=== PATIENT | female | born 1940 | race Caucasian/White ===

== ENCOUNTER → 2018-06-09 12:34 | Outpatient (CLI) | payer MEDICARE, OTHER, SELFPAY ==
--- NOTE | 2018-06-11 09:42 | PM.PFT.1 ---
Pulmonary Function Test Referral & Results Date Patient Seen: 06/09/18 Requesting provider: Julio Kirby Results: The spirometry demonstrates an FVC of 2.61 L which is 70% of predicted. The FEV1 was measured at 1.83 L which is 73% of predicted. The FEV1/FVC ratio was 70 which is 94% of predicted. Following the administration of bronchodilator there was 30% improvement in FEV1 and a 230% improvement in FEF 25-75%. Lung volumes show an SVC of 3.27 L which is 101% of predicted. The diffusing capacity was measured at 24.1 to which is 76% of predicted. No hemoglobin value was provided, so no correction for potential anemia could be made, if appropriate. The maximum voluntary ventilation was normal Interpretation: This study demonstrates moderate obstructive lung disease with evidence of significant benefit following bronchodilator administration based on improvement in both FEV1 and FEF 25-75% There is a minimal reduction in diffusing capacity suggesting an element of disease the capillary alveolar level as well, unless patient is anemic as above.
== END ==
PROVIDERS: PCP Family Medicine; Visit Provider Internal Medicine
DX: R06.09 Other forms of dyspnea (principal)
CPT/HCPCS: 94060; 94726; 94729

== ENCOUNTER → 2018-09-11 10:29 | Outpatient (CLI) | payer MEDICARE, OTHER, SELFPAY ==
--- NOTE | 2018-09-11 | DI.RAD.S_ITS ---
PROCEDURE: XR KNEE STANDING BI INDICATIONS: CHRONIC PAIN ON BOTH KNEES TECHNIQUE: Single standing view of both knees. COMPARISON: None. FINDINGS: Bones: Single standing view demonstrates bilateral femoral tibial compartment narrowing, greater on the right than on the left. There are bilateral epicondylar osteophytes and right medial femorotibial compartment osteophytes. Soft tissues: No suspicious soft tissue calcification. IMPRESSION: Bilateral knee osteoarthritis, slightly greater on the right. Dictated by: Ade Phelps M.D. on 09/11/2018 at 11:13 Approved by: Ade Phelps M.D. on 09/11/2018 at 11:14
--- NOTE | 2018-09-11 | DI.RAD.S_ITS ---
PROCEDURE: XR KNEE RT 3V INDICATIONS: CHRONIC PAIN ON BOTH KNEES TECHNIQUE: 3 views of the knee were acquired. COMPARISON: None. FINDINGS: Bones: No fractures or dislocations. No suspicious bony lesions. Moderate narrowing of the medial femoral tibial joint and mild narrowing of the patellofemoral knee joint. Mild tricompartmental periarticular osteophyte formation. Soft tissues: No joint effusion. No suspicious soft tissue calcifications. IMPRESSION: Knee joint degeneration, most notably involving the medial femoral tibial joint. Dictated by: Chris Allison [facility] Interpreted: Arvind Chaparro MD on 09/11/2018 at 11:26 Approved by: Arvind Chaparro M.D. on 09/11/2018 at 11:54
--- NOTE | 2018-09-11 10:39 | DI.RAD.S_ITS ---
PROCEDURE: XR KNEE LT 3V INDICATIONS: CHRONIC PAIN ON BOTH KNEES TECHNIQUE: 3 views of the knee were acquired. COMPARISON: None. FINDINGS: Bones: There is mild femorotibial compartment narrowing and intercondylar, patellar, and medial femorotibial compartment osteophytes. Soft tissues: No joint effusion. No suspicious soft tissue calcifications. IMPRESSION: Mildly osteoarthritis. Dictated by: Ade Phelps M.D. on 09/11/2018 at 11:14 Approved by: Ade Phelps M.D. on 09/11/2018 at 11:14
== END ==
PROVIDERS: PCP Family Medicine; Visit Provider Family Medicine
DX: M17.0 Bilateral primary osteoarthritis of knee (principal); M25.561 Pain in right knee; M25.562 Pain in left knee; G89.29 Other chronic pain
CPT/HCPCS: 73562; 73565

== ENCOUNTER → 2018-10-13 12:45 | Outpatient (CLI) | payer MEDICARE, OTHER, SELFPAY ==
--- NOTE | 2018-10-13 | DI.CT.S_ITS ---
PROCEDURE: CT CHEST WO CON INDICATIONS: SHORT OF BREATH TECHNIQUE: Noncontrast 5 mm thick sections acquired from the pulmonary apices to the posterior costophrenic angles. 1 mm lung window, 5 mm thick coronal and sagittal and 7 mm axial MIP reformats were then acquired. For radiation dose reduction, the following was used: automated exposure control, adjustment of mA and/or kV according to patient size. COMPARISON: None. FINDINGS: Image quality: Excellent. Lungs and pleura: No acute air space opacities, but there is mild linear atelectasis at each lung base. No pleural effusions or pneumothorax. Central and peripheral airways are patent and normal in caliber. Mediastinum: Heart size is normal. No pericardial effusion. No mediastinal adenopathy by size criteria. Thoracic aorta and central pulmonary arteries are normal in size. Esophagus is normal in caliber. No hiatal hernia. Bones and chest wall: No suspicious bony lesions. No vertebral body compression fractures. No axillary or supraclavicular adenopathy by size criteria. Thyroid gland is normal where well seen. Abdomen: Visualized upper abdominal solid organs and bowel loops appear normal in the absence of contrast. IMPRESSION: Minimal linear atelectasis each lung base, no pneumonia found. No pneumothorax seen. No pleural effusion identified. Dictated by: Arvind Chaparro M.D. on 10/13/2018 at 13:56 Approved by: Arvind Chaparro M.D. on 10/13/2018 at 13:57
== END ==
PROVIDERS: Family Provider Family Medicine; PCP Family Medicine; Visit Provider Family Medicine
DX: J44.9 Chronic obstructive pulmonary disease, unspecified (principal); R06.03 Acute respiratory distress
CPT/HCPCS: 71250

== ENCOUNTER → 2018-11-03 11:47 | Outpatient (CLI) | payer MEDICARE, OTHER, SELFPAY ==
--- NOTE | 2018-11-03 11:52 | DI.CT.S_ITS ---
PROCEDURE: CT ANGIO CHEST INDICATIONS: DYSPNEA ON EXERTION TECHNIQUE: After the administration of intravenous contrast, 2 mm thick sections acquired from the pulmonary apices to the posterior costophrenic angles. 3-dimensional maximum intensity projection (MIP) coronal and sagittal reformats were then acquired through the thorax. For radiation dose reduction, the following was used: automated exposure control, adjustment of mA and/or kV according to patient size. COMPARISON: [facility], CT, CT CHEST WO CON, 10/13/2018, 13:21. FINDINGS: Image quality: Excellent. Pulmonary arteries: Pulmonary arteries are normal in size, and demonstrate no intraluminal filling defects to suggest central pulmonary embolism. Lungs and pleura: Dependent atelectasis in posterior aspect of bilateral lung murillo are seen. Bibasilar scarring/atelectasis is also noted. No pleural effusions or pneumothorax. Central and peripheral airways are patent. Mediastinum: Heart size is normal, without pericardial effusion. No mediastinal or hilar adenopathy. Thoracic aorta is normal in caliber and enhancement. Esophagus is normal in caliber, with with a small out hiatal hernia. Bones and chest wall: No suspicious bony lesions. Ribs and thoracic spine appear intact throughout. Thyroid gland is within normal limits. No axillary or supraclavicular adenopathy. Abdomen: Visualized upper abdominal solid organs appear normal in the early arterial phase of enhancement. Gallbladder is surgically absent. IMPRESSION: 1. No evidence of pulmonary emboli. No thoracic aortic aneurysm or gross dissection. 2. Bibasilar scarring/atelectasis. Bilateral lungs are otherwise clear. 3. No mediastinal or hilar lymphadenopathy. Dictated by: Gustavo Bush M.D. on 11/03/2018 at 13:14 Approved by: Gustavo Bush M.D. on 11/03/2018 at 13:20
== END ==
PROVIDERS: PCP Family Medicine; Visit Provider Family Medicine
DX: R06.09 Other forms of dyspnea (principal)
CPT/HCPCS: 71275; Q9967

== ENCOUNTER → 2019-09-11 08:48 | Outpatient (CLI) | payer MEDICARE, OTHER, SELFPAY ==
--- NOTE | 2019-09-11 08:51 | DI.MRI.S_ITS ---
PROCEDURE: MR HEAD/BRAIN WO CON INDICATIONS: Dizziness and giddiness TECHNIQUE: Non-contrast axial T1 spin echo, axial T2 fast spin echo, sagittal and axial FLAIR, coronal T2 fast spin echo, axial gradient echo, axial diffusion and ADC through the brain. COMPARISON: None. FINDINGS: Image quality: Excellent. CSF spaces: Ventricles appear symmetric in size and shape. Basal cisterns are patent. No extra-axial fluid collections. Brain: No intracranial bleeds or mass effects. There is cerebral volume loss for age. There are periventricular and deep white matter chronic small vessel ischemic changes. Brainstem appears normal. Diffusion-weighted images show no acute ischemic insults. No chronic ischemic insults. Normal intravascular flow voids are present. Skull and face: Calvarial bone marrow is normal in signal. Orbits are normal. Sinuses: Mild mucosal thickening in the bilateral frontal, ethmoid, sphenoid, and maxillary sinuses. Sinuses and mastoids are otherwise clear. IMPRESSION: 1. Volume loss and small vessel ischemic disease. 2. No acute process. No recent infarct. 3. Mild sinus disease. Dictated by: Dima Begum M.D. on 09/11/2019 at 9:52 Approved by: Dima Begum M.D. on 09/11/2019 at 9:53
== END ==
PROVIDERS: PCP Family Medicine; Referring Provider Family Medicine; Visit Provider Family Medicine
DX: R42 Dizziness and giddiness (principal); J32.8 Other chronic sinusitis
CPT/HCPCS: 70551

== ENCOUNTER → 2023-02-09 08:35 | Outpatient (CLI) | payer MEDICARE, OTHER, SELFPAY ==
--- NOTE | 2023-02-09 | DI.MG.S_ITS ---
BILATERAL DIGITAL SCREENING MAMMOGRAM 3D/2D WITH CAD: 02/09/2023 CLINICAL: Routine screening. Personal history of left breast cancer. Family history of breast cancer. Comparison is made to exams dated: 12/07/2009 mammogram, 07/26/2008 mammogram, and 06/23/2007 mammogram - [facility]. There are scattered areas of fibroglandular density in both breasts (category b / 25%-50% glandular tissue). Current study was also evaluated with a Computer Aided Detection (CAD) system. No significant masses, calcifications, or other findings are seen in either breast. There has been no significant interval change. IMPRESSION: NEGATIVE There is no mammographic evidence of malignancy. A 1 year screening mammogram is recommended. Based on the Tyrer Cuzick model (a risk assessment model) the patient's lifetime risk is 0.3% and her 10 year risk is 0.0%. According to the ACR, ACS, and NCCN guidelines, an annual breast MRI exam along with mammogram is recommended if the patient's lifetime risk is 20% or greater. This exam was interpreted at Station ID: [id number]. NOTE: For mammograms, a report in lay terms will be sent to the patient. Approximately 15% of breast malignancies will not be visualized mammographically. In the management of a palpable breast mass, a negative mammogram must not discourage biopsy of a clinically suspicious lesion. Electronically Signed By: Navdeep belle/eyal:02/12/2023 11:13:59 letter sent: Normal Exam ACR BI-RADS Category 1: Negative [id number]
== END ==
PROVIDERS: PCP Family Medicine; Referring Provider Family Medicine; Visit Provider Family Medicine
DX: Z12.31 Encounter for screening mammogram for malignant neoplasm of breast (principal); Z85.3 Personal history of malignant neoplasm of breast; Z80.3 Family history of malignant neoplasm of breast
CPT/HCPCS: 77063; 77067

== ENCOUNTER → 2023-09-14 14:21 | Outpatient (CLI) | payer MEDICARE, OTHER, SELFPAY ==
--- NOTE | 2023-09-14 16:00 | DI.MRI.S_ITS ---
PROCEDURE: MR HEAD/BRAIN WO CON INDICATIONS: COGNATIVE CHANGES TECHNIQUE: Non-contrast axial T1 spin echo, axial T2 fast spin echo, sagittal and axial FLAIR, coronal T2 fast spin echo, axial gradient echo, axial diffusion and ADC through the brain. COMPARISON: [facility], MR, MR HEAD/BRAIN WO CON, 09/11/2019, 9:39. FINDINGS: Image quality: Excellent. CSF spaces: Ventricles appear symmetric in size and shape. Basal cisterns are patent. No extra-axial fluid collections. Brain: No intracranial bleeds or mass effects. There is moderate cerebral volume loss, increased from prior exam. There are periventricular and deep white matter chronic small vessel ischemic changes. Brainstem appears normal. Diffusion-weighted images show no acute infarct. No chronic ischemic insults. Normal intravascular flow voids are present. Skull and face: Calvarial bone marrow is normal in signal. Bilateral lens replacement. Sinuses: Bilateral mucous retention cyst within the maxillary sinus. Trace mucosal thickening within both sphenoid sinuses and frontal sinuses mild mucosal thickening within the ethmoid sinuses. The mastoids are clear. IMPRESSION: 1. No evidence for an acute infarct, hemorrhage or mass lesion. 2. There is moderate cerebral volume loss, increased from prior exam. 3. There are periventricular and deep white matter chronic small vessel ischemic changes. Dictated by: Jamir Rowe M.D. on 09/16/2023 at 9:33 Approved by: Jamir Rowe M.D. on 09/16/2023 at 9:39
== END ==
PROVIDERS: PCP Family Medicine; Referring Provider Nurse Practitioner; Visit Provider Nurse Practitioner
DX: R41.89 Other symptoms and signs involving cognitive functions and awareness (principal)
CPT/HCPCS: 70551